=== PATIENT | male | born 1960 | race Caucasian/White ===

== ENCOUNTER → 2017-04-29 | Outpatient (CLI) | payer BC | LOC: M WUC 12:24 | DX: M25.572 Pain in left ankle and joints of left foot (principal) | CPT/HCPCS: 73610 ==

== ENCOUNTER → 2018-12-22 | Outpatient (CLI) | payer BC ==
--- NOTE | 2018-12-22 19:36 | REP ---
Left ankle series: Four views. History: Ankle and foot injury. Comparison left ankle radiographs are from April 29, 2017. Findings: There is tibiotalar osteoarthritic spurring similar to prior study. A accessory ossicle is seen anterior to the neck of the talus unchanged. There is dystrophic calcification in the soft tissues anterior to this more superficially, also essentially unchanged. There is mild diffuse soft tissue swelling about the ankle. Ankle mortise is intact. No fracture is seen. Impression: Tibiotalar osteoarthritis and diffuse swelling. No acute bony abnormality noted. Electronically Signed by Pablo Odell MD 12/22/2018 07:27 P
--- NOTE | 2018-12-22 19:36 | REP ---
Left foot series: Four views. History: Injury. Findings: Four views of the left foot demonstrate overall normal mineralization. There is mild medial and dorsal soft tissue swelling and midfoot. Old dystrophic calcifications are seen in the midfoot soft tissues anteriorly. No fracture is seen. Impression: Midfoot swelling. No fracture noted. Electronically Signed by Pablo Odell MD 12/22/2018 07:28 P
== END ==
LOC: M WUC 19:09
PROVIDERS: ATTEND Physician Assistant
DX: M19.072 Primary osteoarthritis, left ankle and foot (principal)

== ENCOUNTER 2020-07-28 07:52 | Emergency (ER) | payer BC ==
[~2020-07-28] VITALS: Ht 175.3 cm; Wt 69.2 kg
[2020-07-28] MEDS ORDERED: PANTOPRAZOLE 40MG VIAL (C9113 PER 1) IV ONE (08:25)
[2020-07-28] MEDS ORDERED: GI COCKTAIL 50ML BTL(HYOSCYAMINE/MAALOX/LIDOCAINE VISCOUS)(1:3:1) PO ONE (08:25)
[2020-07-28 08:35] LABS: BASO % 0.6 % (0.0-1.0); EOS # 0.1 10^3/uL (0.0-0.5); EOS % 2.7 % (0.0-3.0); HEMOGLOBIN 16.2 g/dl (13.5-17.5); LYMPH # 1.7 10^3/uL (1.5-5.0); LYMPH % 32.2 % (24.0-44.0); MEAN CORPUSCULAR HEMOGLOBIN 30.4 pg (27.0-33.0); MEAN CORPUSCULAR HGB CONC 33.8 g/dl (32.0-36.5); MEAN CORPUSCULAR VOLUME 90.1 fl (80.0-96.0); MONO # 0.6 10^3/uL (0.0-0.8); MONO % 11.2 % (2.0-8.0); NEUTROPHILS # 2.8 10^3/uL (1.5-8.5); NEUTROPHILS % 53.1 % (36.0-66.0); PLATELET COUNT, AUTOMATED 124 10^3/uL (150-450); RED BLOOD COUNT 5.33 10^6/uL (4.30-6.10); WHITE BLOOD COUNT 5.2 10^3/uL (4.0-10.0)
--- NOTE | 2020-07-28 08:49 | REP ---
INDICATION: CHEST PAIN. COMPARISON: Comparison chest x-ray April 15, 2015. TECHNIQUE: Portable upright AP chest radiograph. FINDINGS: The lungs are well inflated and free of infiltrate. Pleural angles are sharp. Heart size is normal. Pulmonary vasculature is not increased. Monitoring electrodes and a loop recorder are noted. IMPRESSION: No active disease. <Electronically signed by Quintin Odell > 07/28/20 [id number]
[2020-07-28 08:58] LABS: ALBUMIN 3.9 GM/DL (3.2-5.2); ALT/SGPT 22 U/L (12-78); BILIRUBIN,DIRECT 0.3 MG/DL (0.0-0.2); BLOOD UREA NITROGEN 15 MG/DL (7-18); CALCIUM LEVEL 8.8 MG/DL (8.8-10.2); CARBON DIOXIDE LEVEL 29 MEQ/L (21-32); CHLORIDE LEVEL 107 MEQ/L (98-107); CK-MB VALUE MASS 1.8 NG/ML (<3.6); CPK CREATINE PHOSPHOKINASE 112 U/L (39-308); CREATININE FOR GFR 0.92 MG/DL (0.70-1.30); GLOMERULAR FILTRATION RATE > 60.0 (>49); GLUCOSE, FASTING 96 MG/DL (70-100); LIPASE 116 U/L (73-393); MB/CK RELATIVE INDEX 1.61 (< OR =4); POTASSIUM SERUM 3.9 MEQ/L (3.5-5.1); SODIUM LEVEL 141 MEQ/L (136-145); TROPONIN I < 0.02 NG/ML (< 0.10)
[2020-07-28 12:30] LABS: CK-MB VALUE MASS 1.7 NG/ML (<3.6); CPK CREATINE PHOSPHOKINASE 93 U/L (39-308); MB/CK RELATIVE INDEX 1.83 (< OR =4); TROPONIN I < 0.02 NG/ML (< 0.10)
[2020-07-28 12:45] VITALS: BP 129/85
--- NOTE | 2020-07-29 09:10 | ECGEPIP ---
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
--- NOTE | 2020-07-29 09:17 | ECGEPIP ---
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
== END 2020-07-28 12:50 | disposition home or self-care (01) ==
LOC: M ED 07:52
DX: R07.9 Chest pain, unspecified (principal)
CPT/HCPCS: 71045; 80048; 80076; 82550; 82553; 83690; 84484; 85025; 93005; 93041; 94760; 96374; 99285; C9113

== ENCOUNTER → 2022-01-29 | Outpatient (CLI) | payer BC | LOC: M SLEEP 20:00 | PROVIDERS: ATTEND Physician Assistant | DX: G47.33 Obstructive sleep apnea (adult) (pediatric) (principal); G47.61 Periodic limb movement disorder ==